=== PATIENT | female | born 1995 | race Caucasian/White ===

== ENCOUNTER 2024-04-14 16:40 | Emergency (ER) | payer MEDICAID ==
[~2024-04-14] VITALS: Ht 167.6 cm; Wt 68.6 kg
[2024-04-14 17:22] VITALS: BP 156/66; PULSE 76; RESP 17; TEMP 98.6; O2SAT 98
[2024-04-14 18:46] VITALS: TEMP 98.6
[2024-04-14] MEDS: NACL 0.9% 1,000 ML IV ONE (18:47)
[2024-04-14] MEDS: ONDANSETRON 4 MG/2 ML VIAL IVP ONE ×2 (18:47→21:09)
[2024-04-14] MEDS: MORPHINE SULFATE 4 MG/ML SYR IVP ONE (18:47)
[2024-04-14 18:57] LABS: BASOPHILS % (AUTO) 0.2 % (0.0-2.0); EOSINOPHILS # (AUTO) 0.1 K/uL (0-0.4); EOSINOPHILS % (AUTO) 1.1 % (0.0-4.0); HEMATOCRIT 33.1 % (36-48); HEMOGLOBIN 11.3 g/dL (12.0-16.0); LYMPHOCYTES % (AUTO) 15.6 % (20.5-51.1); MEAN CORPUSCULAR HEMOGLOBIN 31 pg (27-31); MEAN CORPUSCULAR HGB CONC 34 g/dL (33-37); MEAN CORPUSCULAR VOLUME 90.7 fL (80-94); MONOCYTES # (AUTO) 0.9 K/uL (0.8-1.0); MONOCYTES % (AUTO) 7.1 % (1.7-9.3); NEUTROPHILS # (AUTO) 9.8 K/uL (1.8-7.7); PLATELET COUNT (AUTO) 226 K/uL (140-450); RED BLOOD CELL COUNT(AUTO) 3.65 MIL/uL (4.20-5.40); RED CELL DISTRIBUTION WIDTH 13.2 % (11.6-13.7); WHITE BLOOD COUNT (AUTO) 12.9 K/uL (4.8-10.8)
[2024-04-14 19:04] LABS: APPEARANCE,URINE CLEAR (CLEAR); BILIRUBIN,URINE NEGATIVE (NEGATIVE); BLOOD, URINE 3+ (NEGATIVE); COLOR,URINE YELLOW (YELLOW); LEUKOCYTE ESTERASE ,URINE NEGATIVE (NEGATIVE); NITRITE, URINE NEGATIVE (NEGATIVE); PH,URINE 6.5 (5.0-9.0); PROTEIN,URINE NEGATIVE (NEGATIVE); UGLUCOSE NEGATIVE (NEGATIVE); UROBILINOGEN,URINE 0.2 EU/dL (0.2 - 1)
[2024-04-14 19:06] LABS: INR 1.02 (0.8-1.2); PROTHROMBIN TIME 10.7 secs (10.8-13.4)
[2024-04-14 19:08] LABS: ANION GAP 14.8 (8-16); CALCIUM 8.5 mg/dL (8.5-10.1); CARBON DIOXIDE 23.4 mmol/L (21-32); CREATININE 0.6 mg/dL (0.6-1.3); POTASSIUM 3.2 mmol/L (3.5-5.1)
[2024-04-14 19:12] LABS: ALBUMIN 3.5 g/dL (3.4-5.0); BILIRUBIN,DIRECT 0.3 mg/dL (0.0-0.3); TOTAL PROTEIN, SERUM 6.8 g/dL (6.4-8.2)
[2024-04-14] MEDS ORDERED: ONDA-188 SL (21:55)
[2024-04-14] MEDS ORDERED: IBUP-2218 PO (21:55)
[2024-04-14] MEDS ORDERED: HYDR-5071 PO (21:55)
[2024-04-14 22:16] VITALS: BP 120/76; PULSE 82; RESP 14; O2SAT 98
== END 2024-04-14 22:20 | disposition home or self-care (01) ==
LOC: MED 16:40
DX: R10.2 Pelvic and perineal pain (principal); Z79.899 Other long term (current) drug therapy; Z91.040 Latex allergy status
CPT/HCPCS: 36415; 76856; 80048; 80076; 81003; 83690; 84702; 85025; 85610; 86886; 86900; 86901; 96361; 96374; 96375; 96376; 99285; J2270; J2405; J7030; Q0092